=== PATIENT | male | born 1965 | race Hispanic/Latino ===

== ENCOUNTER 2016-07-11 21:05 | Emergency (ER) | payer SELFPAY ==
[2016-07-11] MEDS ORDERED: Acetaminophen/Codeine 30-300mg Tablet ONE (21:43)
== END 2016-07-11 21:47 | disposition home or self-care (01) ==
LOC: NAV ERS 21:05
DX: K40.90 Unilateral inguinal hernia, without obstruction or gangrene, not specified as recurrent (principal); I10 Essential (primary) hypertension; F17.220 Nicotine dependence, chewing tobacco, uncomplicated; Z79.2 Long term (current) use of antibiotics
CPT/HCPCS: 99283

== ENCOUNTER 2023-08-19 15:03 | Emergency (ER) | payer SELFPAY ==
[2023-08-19 16:13] LABS: Clarity Clear (Clear); Specific Gravity, Urine 1.025 (1.002-1.036)
[2023-08-19 16:15] LABS: CAUTI Indications for Culture Dysuria,urgency,freq; RBC/HPF 21-50 HPF (0-3); WBC/HPF 0-3 HPF (0-3)
[2023-08-19 16:16] LABS: Urine Culture Reflex No No
== END 2023-08-19 17:10 | disposition home or self-care (01) ==
LOC: NAV ERS 15:03
DX: R33.9 Retention of urine, unspecified (principal); I10 Essential (primary) hypertension; F17.220 Nicotine dependence, chewing tobacco, uncomplicated
CPT/HCPCS: 51702; 81001; 99283